=== PATIENT | male | born 2000 | race Caucasian/White ===

== ENCOUNTER → 2022-08-14 | Outpatient (CLI) | payer BC ==
--- NOTE | 2022-08-14 15:33 | US ---
EXAMINATION TYPE: US abdomen complete DATE OF EXAM: 08/14/2022 COMPARISON: NONE CLINICAL HISTORY: r10.31 RLQ pain. TECHNIQUE: Multiple sonographic images of the abdomen are obtained. FINDINGS: EXAM MEASUREMENTS: Liver Length: 15.4 cm Gallbladder Wall: 0.20 cm CBD: 0.29 cm Spleen: 12.7 cm Right Kidney: 11.3 x 5.3 x 6.0 cm Left Kidney: 12.1 x 5.9 x 5.8 cm BOBBIN DRIER NOTES: Exam limited by overlying bowel gas. Pancreas: Tail obscured by overlying bowel gas Liver: wnl Gallbladder: wnl Evidence for sonographic Espinosa's sign: No CBD: wnl Spleen: wnl Right Kidney: wnl Left Kidney: wnl Upper IVC: wnl Abd Aorta: wnl The liver is homogenous. The intrahepatic portion of the IVC and proximal abdominal aorta are within normal limits. There is no evidence of cholelithiasis. Common bile duct is unremarkable. The visu alized portions of the pancreas are homogenous. The spleen is unremarkable. Kidneys are symmetric a nd free of hydronephrosis. No renal lesions are seen. IMPRESSION: No discrete abnormality seen
--- NOTE | 2022-08-14 15:36 | US ---
EXAMINATION TYPE: US abdomen APPY DATE OF EXAM: 08/14/2022 COMPARISON: NONE CLINICAL HISTORY: R10.31 RLQ pain. TECHNIQUE: Multiple sonographic images of the right lower quadrant were obtained with graded compress ion. FINDINGS: APPENDIX not visualized, obscured by overlying bowel gas, patient body habitus. IMPRESSION: Nonvisualization of the appendix.
== END | disposition home or self-care (01) ==
LOC: RADUSWWP 14:14
PROVIDERS: ATTEND Family Medicine
DX: R10.31 Right lower quadrant pain (principal)
CPT/HCPCS: 76700; 76705